=== PATIENT | female | born 1940 | race Caucasian/White ===

== ENCOUNTER 2021-08-30 14:44 | Emergency (ER) | payer OTHER, MEDICAID, SELFPAY ==
[2021-08-30] VITALS (16 sets, daily range): BP systolic 142–152; BP diastolic 78–100; PULSE 69–77; RESP 10–23; TEMP 36.1; O2SAT 97–99
--- NOTE | ~2021-08-30 | XR_ITS ---
EXAMINATION: XR hip BI 2V w AP pelvis EXAM DATE: 08/30/2021 15:57 INDICATION: Fall from w/c this P.M. . Head injury, hip pain. TECHNIQUE: Each hip imaged independently (separate right and also left hip) 'frog leg' and frontal p rojections for interpretation. Frontal projection pelvis. There is no prior study for comparison. FINDINGS: No radiographic evidence of hip avascular necrosis. There are no acute pelvic or hip fract ures or dislocations identified. There is no subcutaneous gas. There are arterial calcifications, a rteriosclerosis. There are no radiopaque foreign bodies. There is mild to moderate symmetric bilat eral hip primary osteoarthritis. IMPRESSION: 1. Hip, pelvic exam without acute osseous findings. Reviewed, dictated and finalized at location A. RUCTIONAL MANAGER
--- NOTE | ~2021-08-30 | XR_ITS ---
EXAMINATION: XR chest 2V DATE: 08/30/2021 15:57 INDICATION: Cough. COVID-19 pneumonia. TECHNIQUE: Frontal and lateral views of the chest were obtained. COMPARISON: None. FINDINGS: There is mild elevation of left hemidiaphragm. There are peripheral interstitial and airspa ce opacities in all lung zones bilaterally. No pleural effusion or pneumothorax. The heart size is no rmal. There is a large hiatal hernia. IMPRESSION: 1. Diffuse lung disease, consistent with COVID-19 pneumonia. 2. Large hiatal hernia. Reviewed, dictated and finalized at location B. DEVELOPMENT SPECIALIST
--- NOTE | ~2021-08-30 | CT_ITS ---
EXAMINATION: CT cervical spine wo con, CT brain wo con EXAM DATE: 08/30/2021 16:01 (accession [id number]), 08/30/2021 16:02 (accession [id number]) INDICATION: Fall, head injury. TECHNIQUE: Spiral CT of the head was performed without contrast. Axial, coronal and sagittal images were reviewed. Spiral CT of the cervical spine was performed without contrast. Axial images were rev iewed. Coronal and sagittal reformatted images were also reviewed. The dose-length product (DLP) fo r this examination was 392.76 (accession [id number]), 605.33 (accession [id number]) mGy-cm. The exposure was tailored according to patient size, and iterative reconstruction (ASIR) was used as additional dose reduction technique. There is no prior study for comparison. 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 Old punctate right thalamic lacunar infarc tion. There is no acute intraparenchymal hemorrhage. No evidence of intraparenchymal brain mass lesi on. No evidence of acute infarction. There is moderate periventricular and subcortical hypodensity, nonspecific but probably related to small vessel ischemic disease. There is moderate prominence of the sulci and ventricles related to cerebral atrophy. There is no mass effect or midline shift. Th ere is no obstructive hydrocephalus suspected. There are no extra-axial collections. There are no a cute calvarial fractures. Patient has had left-sided ocular lens surgery. Small left frontal scalp contusion/hematoma. The visualized sinuses and mastoid air cells are well aerated. CERVICAL CT: Moderate to severe cervical spondylosis. There is no evidence of acute cervical fracture . The odontoid process is intact. Pre-dens space is normal. Prevertebral soft tissue is normal. T here are no soft tissue abnormalities identified. There is no disc space widening or traumatic verte bral body subluxation suspected. A detailed level by level evaluation of spondylosis can be added as addendum if requested. IMPRESSION: 1. No acute intracranial findings or cervical fracture. 2. 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 3. 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 4. Age-related intracranial findings. 5. Cervical spondylosis. 6. Small left frontal scalp contusion/hematoma. Reviewed, dictated and finalized at location A. FARM ENGINEER IMPRESSION: 1. No acute intracranial findings or cervical fracture. 2. 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 3. 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 4. Age-related intracranial findings. 5. Cervical spondylosis. 6. Small left frontal scalp contusion/hematoma.
--- NOTE | 2021-08-30 14:49 | ECG_ITS ---
Measurements Intervals [place] Rate: 73 P: 55 AL: 204 QRS: -36 QRSD: 105 T: 21 QT: 417 QTc: 460 Interpretive Statements SINUS RHYTHM LEFT AXIS DEVIATION BORDERLINE AV CONDUCTION DELAY DELAYED PRECORDIAL R/S TRANSITION INFERIOR INFARCT, AGE INDETERMINATE BASELINE ARTIFACT- I, II, III, AVR, AVL, AVF, V1-V2 ABNORMAL ECG Electronically Signed On 09-04-2021 13:18:02 HONING MACHINE OPERATOR SEMIAUTOMATIC by Tree Kennedy D.O.
--- NOTE | 2021-08-30 15:49 | ED.FALL ---
HPI - Fall General Chief Complaint: Fall <VELIA Yeung Last Filed: 08/30/21 16:43> Stated Complaint: fall <VELIA Yeung Last Filed: 08/30/21 16:43> Time Seen by Provider: 08/30/21 15:16 <VELIA Yeung Last Filed: 08/30/21 16:43> Source: patient and EMS <VELIA Yeung Last Filed: 08/30/21 16:43> Mode of arrival: EMS <VELIA Yeung Last Filed: 08/30/21 16:43> Limitations: dementia <VELIA Yeung Last Filed: 08/30/21 16:43> History of Present Illness HPI Narrative: This is a 80 year old female that presents to the ER after a fall today with head injury. Reports she was bending forward in her wheelchair to pick something up and fell forward. Reports hitting her head. Denies loss of consciousness. Was recently diagnosed with COVID at her nursing facility. Otherwise has no complaints. Denies fever, vision changes, chest pain, shortness of breath, vomiting, numbness or focal weakness. <VELIA Yeung Last Filed: 08/30/21 16:43> Related Data Home Medications: Home Medications Medication Instructions Recorded Confirmed Symbicort 08/30/21 alprazolam 08/30/21 amiodarone 200 mg 08/30/21 carvedilol 08/30/21 digoxin 08/30/21 omeprazole 08/30/21 rosuvastatin 08/30/21 sertraline 08/30/21 <VELIA Yeung Last Filed: 08/30/21 16:43> Allergies/Adverse Reactions: Allergies Allergy/AdvReac Type Severity Reaction Status Date / Time Penicillins Allergy Unknown Verified 08/30/21 15:00 <VELIA Yeung Last Filed: 08/30/21 16:43> Review of Systems Review of Systems: CONSTITUTIONAL: Denies fever EYES: Denies visual changes CARDIOVASCULAR: Denies chest pain RESPIRATORY: Denies dyspnea. GASTROINTESTINAL: Denies vomiting MUSCULOSKELETAL: Denies back pain, joint pain, or myalgia. NEUROLOGIC: Denies headache, numbness, or weakness. <Deepika Ackerman PA-C - Last Filed: 08/30/21 16:43> All systems reviewed & are unremarkable except as noted in HPI and below <Deepika Ackerman PA-C - Last Filed: 08/30/21 16:43> PMFSH Past Medical History Medical History: Medical History (Updated 08/30/21 @ 16:41 by Deepika Ackerman PA-C) History of COPD History of gastroesophageal reflux (GERD) History of hyperlipidemia <Deepika Ackerman PA-C - Last Filed: 08/30/21 16:43> Social History Social History: Social History (Updated 08/30/21 @ 15:54 by Deepika Ackerman PA-C) Substance use: never <Deepika Ackerman PA-C - Last Filed: 08/30/21 16:43> Exam Narrative: GENERAL: Well-appearing, well-nourished, and in no acute distress. HEAD: Normocephalic. Contusion of the left forehead EYES: PERRLA and EOMI. ENT: Nares clear, no rhinorrhea or epistaxis. Mucous membranes moist. Oropharynx without tonsillar hypertrophy exudate or other lesions. Bilateral TMs pearly patel non-bulging NECK: Supple. No adenopathy or masses. No midline spinal tenderness CHEST: Clear to auscultation. No respiratory distress. No wheezes rales or rhonchi HEART: Regular rate and rhythm. No murmur heard. Normal peripheral pulses. BACK: No midline thoracic or lumbar spine tenderness EXTREMITIES: Normal range of motion. No edema or obvious deformity. SKIN: Warm, dry, no rash. NEURO: No focal deficits. Alert and oriented x2. CN II-XII grossly intact PSYCH: Normal mood and affect <Deepika Ackerman PA-C - Last Filed: 08/30/21 16:43> Course BENDER HELPER/PA Physician Supervision For this patient encounter, I reviewed the BENDER HELPER or PA documentation, treatment plan, and medical decision making. <Yonis Chun MD - Last Filed: 08/30/21 18:48> Vital Signs Vital signs: Vital Signs Temperature 97.0 F L 08/30/21 14:45 Pulse Rate 74 08/30/21 14:45 Respiratory Rate 18 08/30/21 14:45 Blood Pressure 152/89 H 08/30/21 14:45 Pulse Oximetry 99 08/30/21 14:45 Temperature 97.0 F L 08/30/21 14:45 Pulse
--- NOTE | 2021-08-30 18:16 | PC.NURSE ---
made contact with [facility] to transfer pt back to [facility]. richar pratt declined. made contact with [facility]. [facility] accepted with an eta of [id number]
--- NOTE | 2021-08-30 18:28 | PC.NURSE ---
cheyenne has arrived and is aware that pt is going back to [facility]
== END 2021-08-30 18:54 ==
PROVIDERS: Emergency Provider Emergency Medicine
DX: S00.83XA Contusion of other part of head, initial encounter (principal); U07.1 COVID-19; J12.82 Pneumonia due to coronavirus disease 2019; J44.9 Chronic obstructive pulmonary disease, unspecified; K21.9 Gastro-esophageal reflux disease without esophagitis; E78.5 Hyperlipidemia, unspecified; K44.9 Diaphragmatic hernia without obstruction or gangrene; M47.812 Spondylosis without myelopathy or radiculopathy, cervical region; W05.0XXA Fall from non-moving wheelchair, initial encounter
CPT/HCPCS: 70450; 71046; 72125; 73521; 93005; 99284

== ENCOUNTER 2023-01-24 18:59 | Emergency (ER) | payer OTHER, MEDICAID, SELFPAY ==
[2023-01-24] VITALS (26 sets, daily range): BP systolic 110–144; BP diastolic 61–89; PULSE 68–75; RESP 20–26; TEMP 36.6; O2SAT 97–100
--- NOTE | ~2023-01-24 | XR_ITS ---
EXAMINATION: XR chest 1V portable INDICATION: Shortness of breath TECHNIQUE: Portable AP chest at 1943 hours COMPARISON: 08/30/2021 FINDINGS: There are diffuse interstitial opacities throughout all lung zones. No pleural effusion or pneumothorax. Cardiomegaly is noted. There is a large hiatal hernia. IMPRESSION: 1. Diffuse lung disease which could reflect pulmonary edema, pneumonia, or chronic interstitial disea se. Reviewed, dictated and finalized at location F. IMPRESSION: 1. Diffuse lung disease which could reflect pulmonary edema, pneumonia, or child therapist deonte interstitial disease.
--- NOTE | 2023-01-24 19:37 | ECG_ITS ---
Measurements Intervals [place] Rate: 74 P: 44 AR: 186 QRS: -35 QRSD: 91 T: 20 QT: 289 QTc: 321 Interpretive Statements SINUS RHYTHM LEFT AXIS DEVIATION [QRS AXIS < -30] MINIMAL VOLTAGE CRITERIA FOR LVH, CONSIDER NORMAL VARIANT [MEETS CRITERIA IN ONE OF: R(aVL), S(V1), R(V5), R(V5/V6)+S(V1)] NONSPECIFIC ST & T-WAVE ABNORMALITY COMPARED TO ECG 08/30/2021 14:49:01 T-WAVE ABNORMALITY NOW PRESENT Electronically Signed On 01-25-2023 8:35:36 CDT by Emerita Jacobs M.D.
--- NOTE | 2023-01-24 19:39 | PC.NURSE ---
This RN assumed care of patient.
--- NOTE | 2023-01-24 20:02 | ED.GENADULT ---
HPI - General Adult General Chief complaint: Skin/Abscess/Foreign Body Stated complaint: painful rash/sob Time Seen by Provider: 01/24/23 19:28 History of Present Illness HPI narrative: Patient is a 82-year-old female who presents the emergency department with chief complaint of rash and shortness of breath. Patient has prior history of COPD and is a resident of a local nursing facility they noticed a rash develop underneath her right breast and from her sternum to her back. The staff at the facility reports that is a vesicular type rash concerning for shingles incidentally the patient also has had some increased shortness of breath and is normally on 4 L of oxygen at the facility. The patient currently has no complaint Related Data Home Medications Medication Instructions Recorded Confirmed Symbicort 08/30/21 alprazolam 0.25 mg tablet 08/30/21 amiodarone 200 mg 08/30/21 carvedilol 3.125 mg tablet 08/30/21 digoxin 08/30/21 omeprazole 08/30/21 rosuvastatin 08/30/21 sertraline 08/30/21 Allergies Allergy/AdvReac Type Severity Reaction Status Date / Time Penicillins Allergy Unknown Verified 05/28/22 08:56 Review of Systems Review of Systems: A 10 system review of systems was completed on the patient and is negative except for what is stated in the HPI. Nursing and ancillary documentation was reviewed. [facility] Past Medical History Medical History History of COPD History of gastroesophageal reflux (GERD) History of hyperlipidemia Social History Social History Substance use: never Exam Narrative: GENERAL: Well-appearing, well-nourished, and in no acute distress. HEAD: Normocephalic, atraumatic. EYES: PERRLA and EOMI. ENT: Nares clear, no rhinorrhea or epistaxis. Mucous membranes moist. NECK: Supple. CHEST: Clear to auscultation. No respiratory distress. There is a zoster form rash present underneath the right breast starting at the right sternal border HEART: Regular rate and rhythm. No murmur heard. Normal peripheral pulses. ABDOMEN: Soft, nontender, nondistended, normal active bowel sounds. EXTREMITIES: Normal range of motion. No edema. SKIN: Warm, dry, no rash. NEURO: No focal deficits. Alert and pleasantly confused at patient's reported baseline. PSYCH: Normal mood and affect. Course Vital Signs Vital signs: Vital Signs Temperature 36.6 C 01/24/23 19:00 Pulse Rate 75 01/24/23 19:00 Respiratory Rate 25 H 01/24/23 19:00 Blood Pressure 144/70 H 01/24/23 19:00 Pulse Oximetry 98 01/24/23 19:00 Oxygen Delivery Nasal Cannula 01/24/23 19:00 Oxygen Flow Rate 4 01/24/23 19:00 Temperature 36.6 C 01/24/23 19:00 Pulse Rate 72 01/24/23 20:18 Respiratory Rate 24 H 01/24/23 20:18 Blood Pressure 144/70 H 01/24/23 19:00 Pulse Oximetry 99 01/24/23 20:17 Oxygen Delivery Nasal Cannula 01/24/23 20:17 Oxygen Flow Rate 4 01/24/23 20:17 Fraction of Inspired Oxygen 36 01/24/23 20:17 Medical Decision Making [facility] Narrative Medical decision making narrative: Differential diagnosis includes COPD exacerbation, shingles, chest wall pain, pneumonia, ACS, sepsis Laboratory studies were obtained on the patient which showed a white count of 9.2 electrolytes showed slight liver transaminase elevation but normal bilirubin troponin was less than 0.012 BNP was 452 procalcitonin 0.3 chest x-ray showed possible pneumonia versus interstitial infiltrates versus CHF. The patient is currently hemodynamically stable patient be started on Valtrex for the zoster and will also be started on Levaquin for the possible pneumonia Vital Signs Vital Signs: Vital Signs Temperature 36.6 C 01/24/23 19:00 Pulse Rate 75 01/24/23 19:00 Respiratory Rate 25 H 01/24/23 19:00 Blood Pressure 144/70 H 01/24/23 19:00 Pulse Oximetry 98 06
[2023-01-24 20:03] LABS: Basophils Percent Auto 0.4 % (0.2-1.2); Eosinophils Absolute Auto 0.1 K/mm3 (0-0.3); Eosinophils Percent Auto 1.5 % (0-4.4); Hematocrit 42.2 % (37.0-47.0); Hemoglobin 13.6 g/dL (12.0-15.0); Immature Granulocyte Absolute 0.03 K/mm3 (0.00-0.031); Immature Granulocyte Percent A 0.3 % (0-0.5); Lymphocytes Absolute Auto 0.99 K/mm3 (0.9-3.2); Lymphocytes Percent Auto 10.8 % (18.3-44.2); Mean Corpuscular HGB Conc 32.2 g/dl (32-36); Mean Corpuscular Hemoglobin 30.7 pg (26-34); Mean Corpuscular Volume 95.3 fl (80-100); Mean Platelet Volume 12.5 fl (7.4-10.4); Monocytes Absolute Auto 0.7 K/mm3 (0.1-0.6); Monocytes Percent Auto 7.7 % (2.6-8.5); Neutrophils Absolute Auto 7.3 K/mm3 (1.3-6.7); Neutrophils Percent Auto 79.3 % (45.5-73.1); Platelet Count Result 147 k/mm3 (150-375); Red Blood Count 4.43 M/mm3 (4.2-5.4); Red Cell Distribution Width 14.6 % (11.5-14.5); White Blood Count 9.2 K/mm3 (4.5-10.0)
[2023-01-24] MEDS: IPRATROPIUM BR 0.02% INH SOLN 0.5 MG/2.5 ML VIAL INHALATION (20:11)
[2023-01-24] MEDS: ALBUTEROL SULFATE NEB 2.5 MG/3 ML INH INHALATION (20:11)
[2023-01-24 20:16] LABS: INR 1.1; Partial Thromboplastin Time 30.6 SECONDS (22.3-36.8); Prothrombin Time 14.6 Seconds (11.1-14.7)
[2023-01-24 20:17] LABS: Lactic Acid Reflex 0.8 mmol/L (0.7-2.0)
[2023-01-24 20:17] LABS: Alanine Aminotransferase 87 U/L (6-35); Albumin Level 3.7 g/dL (3.5-5.1); Alkaline Phosphatase 176 U/L (38-126); Anion Gap 4 mmol/L (8-16); Aspartate Amino Transferase 110 U/L (14-36); Bilirubin,Total 0.6 mg/dL (0.2-1.3); Blood Urea Nitrogen 18 mg/dL (7-17); Calcium 9.4 mg/dL (8.4-10.2); Carbon Dioxide 33 mmol/L (22-30); Chloride 103 mmol/L (98-107); Estimated CRCL calculation 46 ml/min; Estimated Glomerular Filt Rate > 60; Glucose 164 mg/dL (65-110); Magnesium 1.9 mg/dL (1.6-2.3); Potassium 3.4 mmol/L (3.4-5.0); Sodium 140 mmol/L (137-145)
[2023-01-24 20:26] LABS: NT Pro B Type Natriuretic Pept 452 pg/mL (19.9-100); Troponin I < 0.012 ng/mL (0.000-0.034)
[2023-01-24 20:47] LABS: Procalcitonin 0.3 ng/mL
[2023-01-24] MEDS: valACYclovir HCL 500 MG TABLET 1000 MG PO (22:47)
[2023-01-24] MEDS: levoFLOXacin 750 MG TABLET PO (22:47)
[2023-01-25 00:38] VITALS: PULSE 72; RESP 21
[2023-01-25 00:45] VITALS: PULSE 71; RESP 19
[2023-01-25 01:00] VITALS: BP 134/67; PULSE 71; RESP 19
[2023-01-25 01:01] VITALS: PULSE 70; RESP 18; O2SAT 97
--- NOTE | 2023-01-25 02:17 | PC.NURSE ---
0215 Report called to HESHAM Quinn at [facility]. Patient awaiting transport back to the [place] at this time.
[2023-01-25 02:19] VITALS: BP 136/75; PULSE 75; RESP 17; O2SAT 97
== END 2023-01-25 02:42 ==
PROVIDERS: Emergency Provider Emergency Medicine
DX: J44.0 Chronic obstructive pulmonary disease with (acute) lower respiratory infection (principal); J18.9 Pneumonia, unspecified organism; B02.9 Zoster without complications; R06.02 Shortness of breath; Z99.81 Dependence on supplemental oxygen; K21.9 Gastro-esophageal reflux disease without esophagitis; E78.5 Hyperlipidemia, unspecified; Z79.51 Long term (current) use of inhaled steroids
CPT/HCPCS: 36415; 71045; 80053; 83605; 83735; 83880; 84145; 84484; 85025; 85610; 85730; 93005; 94640; 99284; A9270

== ENCOUNTER 2023-03-15 08:32 | Inpatient (IN) | payer OTHER, MEDICAID, SELFPAY ==
[2023-03-15] VITALS (35 sets, daily range): BP systolic 100–129; BP diastolic 48–84; PULSE 77–110; RESP 19–34; TEMP 36.3–37.6; O2SAT 88–98
--- NOTE | ~2023-03-15 | XR_ITS ---
XR chest 1V portable DATE: 03/15/2023 09:43 INDICATION: Hypoxia TECHNIQUE: Portable upright AP chest on 03/15/2023 at 0936 hours COMPARISON: 01/24/2023 portable AP chest FINDINGS: Heart size is appears within normal range. There is extensive thoracic aortic and abdominal aortic calcification. No hilar or mediastinal enlargement. No pulmonary consolidation, pulmonary vascular congestion, pleural effusion or pneumothorax is eviden t. Diffuse osteopenia. IMPRESSION: No active cardiopulmonary disease Aortic atherosclerosis Osteopenia Reviewed, dictated and finalized at location A.
--- NOTE | ~2023-03-15 | US_ITS ---
EXAMINATION: US abdomen limited DATE: 03/16/2023 15:12 INDICATION: elevated LFTs TECHNIQUE: Multiple grayscale and Doppler ultrasound images of limited portions of the abdomen were o btained. COMPARISON: None available. FINDINGS: The visualized portions of the pancreas are normal. The liver is normal with normal echogen icity and echotexture. 1.5 cm simple liver cyst. No surface nodularity. Normal hepatopetal flow in th e main portal vein. The gallbladder is surgically absent. The common bile duct measures 5 mm. There w as no sonographic Meneses sign. IMPRESSION: Status post cholecystectomy, otherwise unremarkable limited abdominal ultrasound findings. Reviewed, dictated and finalized at location K. IMPRESSION: Status post cholecystectomy, otherwise unremarkable limited abdominal ultrasoun d findings.
--- NOTE | ~2023-03-15 | CT_ITS ---
EXAMINATION: CTA chest PE protocol DATE: 03/15/2023 13:24 INDICATION: Hypoxia TECHNIQUE: Computed tomography angiography (CTA) of the chest was performed with 100 mL Omnipaque-350 intravenous contrast timed to evaluate the pulmonary arteries. Coronal maximum intensity projection 3D-reconstructions were created by the technologist. Automated exposure control and iterative reconst ruction technique were employed. Exam dose: 436.45 mGy-cm total exam DLP. COMPARISON: 03/15/2023 portable AP chest FINDINGS: Examination is limited by motion. No apparent pulmonary embolus is noted. There is thoracic aortic calcification, ectasia but no thoracic aortic aneurysm or dissection is note d. Coronary artery calcifications. Heart size appears within normal limits. No hilar or mediastinal mass lesion or lymphadenopathy is detected. There is prominent emphysematous change of right lower lobe. There is patchy infiltrate and/or atelec tasis in the posterior base of the left lower lobe. Lungs. There is mild dependent atelectasis is Moderately large hiatal hernia. There are some circumferential soft tissue thickening of the distal e sophagus which may be due to esophagitis. Included right glenohumeral joint shows prominent osteoarthritis. Degenerative changes of the cervica l and thoracic spine. Osteopenia. IMPRESSION: No pulmonary embolism is identified Posterior basilar left lower lobe infiltrate and/or atelectasis Thoracic aortic atherosclerosis Prominent emphysema Moderately large hiatal hernia, probable esophagitis Reviewed, dictated and finalized at Location [facility]. Reviewed, dictated and finalized at location A.
--- NOTE | ~2023-03-15 | CT_ITS ---
EXAMINATION: CT brain wo con DATE: 03/15/2023 10:28 INDICATION: Altered mental state TECHNIQUE: Computed tomography (CT) of the head was performed without intravenous contrast. The mA wa s adjusted according to patient size. Iterative reconstruction technique was employed. Exam dose: 90 8.00 mGy-cm total exam DLP. COMPARISON: 08/30/2021 CT brain FINDINGS: Bilateral vertebral artery, basilar artery and bilateral carotid siphon and supraclinoid in ternal carotid artery calcifications. There is nonspecific diminished attenuation cerebral white matter, likely due to chronic small vessel ischemic changes. Again noted is right frontal cerebrovascular infarct. There are chronic lacunar infarcts of right the right thalamus and basal ganglia. There is nonspecific diminished attenuation of the cerebral white matter, likely due to chronic small vessel ischemic changes. No intracranial mass lesion or hemorrhage, midline shift or mass effect is detected. Moderate cerebral and cerebellar atrophy. No subdural or epidural hematoma is detected. Polyp or mucous retention cyst along the anterior roof of the right maxillary sinus and another small er mucous retention cyst or polyp along the anterior wall of the right sphenoid sinus. There are coup le of small areas of soft tissue thickening of the left ethmoid air cells. The paranasal sinuses and mastoid air cells are otherwise unremarkable. No fracture or bone destruction of the cranial vault. IMPRESSION: Cerebral atherosclerosis and chronic small vessel ischemic changes of the cerebral white matter Chronic right frontal lobe infarct and chronic lacunar infarcts of the right basal ganglia and right thalamus Moderate cerebral and cerebellar atrophy Reviewed, dictated and finalized at [facility]. Reviewed, dictated and finalized at location A. IMPRESSION: Cerebral atherosclerosis and chronic small vessel ischemic changes of the cerebral white matter Chronic right frontal lobe infarct and chronic lacunar infarcts of the right ba jareth ganglia and right thalamus Moderate cerebral and cerebellar atrophy
--- NOTE | 2023-03-15 08:38 | ECG_ITS ---
Measurements Intervals [place] Rate: 96 P: 24 [place]: 161 QRS: -40 QRSD: 79 T: 0 QT: 242 QTc: 306 Interpretive Statements SINUS RHYTHM LEFT AXIS DEVIATION PATTERN CONSISTENT WITH PULMONARY DISEASE LEFT VENTRICULAR HYPERTROPHY AND ST-T CHANGE INFERIOR INFARCT, AGE INDETERMINATE BORDERLINE ST-T WAVE ABNORMALITY- ANTEROLATERAL LEADS BASELINE ARTIFACT- I, III, AVR, AVL, V1 ABNORMAL ECG COMPARED TO ECG 01/24/2023 19:45:44 ST (T WAVE) DEVIATION NOW PRESENT Electronically Signed On 03-15-2023 8:55:53 CDT by Tree Kennedy D.O.
[2023-03-15] MEDS: IPRATROPIUM BR 0.02% INH SOLN 0.5 MG/2.5 ML VIAL 1 MG INHALATION (09:10)
[2023-03-15] MEDS: ALBUTEROL SULFATE NEB 2.5 MG/3 ML INH 15 MG INHALATION (09:10)
[2023-03-15 09:19] LABS: Alveolar/Arterial O2 Gradient 541.4 mmHg; Fractional Inspired Oxygen 100 %; Oxygen Content ABG 18.8 %vol (16.0-22.0); Oxygen Saturation ABG 99.1 % (95.0-100.0); Oxyhemoglobin 97.3 % THb (90.0-100.0); PCO2 ABG 32.8 mmHg (35.0-45.0); PO2 ABG 138.8 mmHg (80.0-100.0); PO2 FiO2 Ratio Arterial Blood 1.39 %; Total Hemoglobin 13.6 g/dL (12.0-18.0)
[2023-03-15 09:22] LABS: Device NON-REBREATHER MASK; Site Drawn RIGHT BRACHIAL; pH ABG 7.564 (7.350-7.450)
[2023-03-15 09:25] LABS: Appearance Urine Cloudy (Clear); Bacteria Urine 4+ /hpf; Bilirubin Urine 1+ (Negative); Blood Urine 3+ (Negative); Color Urine Dark Yellow (Yellow); Glucose Urine UA Negative (Negative); Ketones Urine Trace mg/dL (Negative); Leukocyte Esterase Ur Trace LEU/UL (Negative); Mucus Urine Present /lpf; Nitrate Urine Negative (Negative); Protein Urine 3+ mg/dL (Negative); RBC Urine 0-2 /hpf (0-2); Specific Grav Ur 1.026 (1.001-1.035); Squamous Epithelial Cell Urine Occasional /hpf (Few); WBC Urine 0-5 /hpf; pH Urine 5.5 (5.0-9.0)
[2023-03-15 09:31] LABS: Basophils Absolute Auto 0.1 K/mm3 (0.0-0.1); Basophils Percent Auto 0.4 % (0.2-1.2); Hematocrit 41.6 % (37.0-47.0); Hemoglobin 13.2 g/dL (12.0-15.0); Immature Granulocyte Absolute 0.12 K/mm3 (0.00-0.031); Immature Granulocyte Percent A 0.6 % (0-0.5); Immature Platelet Fraction Pct 11.8 % (0.9-11.2); Lymphocytes Absolute Auto 2.57 K/mm3 (0.9-3.2); Mean Corpuscular HGB Conc 31.7 g/dl (32-36); Mean Corpuscular Hemoglobin 31.1 pg (26-34); Mean Corpuscular Volume 97.9 fl (80-100); Monocytes Absolute Auto 1.1 K/mm3 (0.1-0.6); Neutrophils Absolute Auto 17.6 K/mm3 (1.3-6.7); Nucleated Red Blood Cells Perc 0.1 % (0.0-0.2); Platelet Count Result 220 k/mm3 (150-375); Red Blood Count 4.25 M/mm3 (4.2-5.4); Red Cell Distribution Width 17.7 % (11.5-14.5); White Blood Count 21.4 K/mm3 (4.5-10.0)
[2023-03-15 09:39] LABS: Lactic Acid Reflex 1.9 mmol/L (0.7-2.0)
[2023-03-15 09:43] LABS: Alanine Aminotransferase 121 U/L (6-35); Albumin Level 2.9 g/dL (3.5-5.1); Alkaline Phosphatase 327 U/L (38-126); Anion Gap 5 mmol/L (8-16); Aspartate Amino Transferase 140 U/L (14-36); Blood Urea Nitrogen 21 mg/dL (7-17); Calcium 8.6 mg/dL (8.4-10.2); Carbon Dioxide 31 mmol/L (22-30); Chloride 116 mmol/L (98-107); Estimated CRCL calculation 38 ml/min; Estimated Glomerular Filt Rate 60; Glucose 174 mg/dL (65-110); Potassium 2.6 mmol/L (3.4-5.0); Sodium 152 mmol/L (137-145)
[2023-03-15 09:44] LABS: Influenza A QL RT-PCR Negative (Negative); Influenza B QL RT-PCR Negative (Negative); RSV RNA, RT-PCR Negative (Negative); SARS-CoV-2 RNA PCR Negative (Negative)
[2023-03-15 10:00] LABS: Add Urine Microscopic? YES
[2023-03-15] MEDS: LACTATED RINGERS 1,000 ML 999 ML IV CONT ×2 (10:06→11:56)
[2023-03-15] MEDS: POTASSIUM CHLORIDE INJ 40 MEQ in SODIUM CHLORIDE 0.9% IV 500 ML 130 MEQ IVPB ×2 (10:07→18:00)
[2023-03-15 10:30] LABS: Glucose Point of Care 174 mg/dl (65-105)
--- NOTE | 2023-03-15 10:42 | ED.AMS ---
HPI - Altered Mental Status General Chief Complaint: Altered Mental Status Stated Complaint: increased altered mental status Time Seen by Provider: 03/15/23 08:34 History of Present Illness HPI narrative: Patient arrives from [place] with AMS since yesterday, normally she is alert and oriented x3. Also having difficulty breathing which improved after paramedics started breathing treatments. She is on home O2 but was saturating 76% on 2L when EMS arrived. DNR/DNI. Related Data Home Medications Medication Instructions Recorded Confirmed Symbicort 08/30/21 alprazolam 0.25 mg tablet 08/30/21 amiodarone 200 mg 08/30/21 carvedilol 3.125 mg tablet 08/30/21 digoxin 08/30/21 omeprazole 08/30/21 rosuvastatin 08/30/21 sertraline 08/30/21 Allergies Allergy/AdvReac Type Severity Reaction Status Date / Time Penicillins Allergy Unknown Verified 03/15/23 10:12 Review of Systems Review of Systems: ROS unobtainable: Yes unobtainable due to medical condition [facility] Past Medical History Medical History History of COPD History of gastroesophageal reflux (GERD) History of hyperlipidemia Social History Social History Substance use: never Exam Narrative: EXAMINATION OF ORGAN SYSTEMS/BODY AREAS: Constitutional: Vital signs per nursing GENERAL: Eyes closed, breathing rapidly HEAD: Normal with no signs of head trauma. EYES: PERRL ENT: Dry mucous membranes LUNGS: Hyperventilating, no obvious wheezing but rhonchi bilaterally HEART: [Regular rate and rhythm] ABD: [Soft], [nontender to palpation] EXT: No obvious deformity SKIN: [No rashes or lesions.] NEURO: [Eyes closed and lethargic. No gross focal sensory or strength deficits.] Course Vital Signs Vital signs: Vital Signs Temperature 98.8 F 03/15/23 08:38 Pulse Rate 97 03/15/23 08:38 Respiratory Rate 28 H 03/15/23 08:38 Blood Pressure 119/75 03/15/23 08:38 Pulse Oximetry 88 L 03/15/23 08:38 Oxygen Delivery Nasal Cannula 03/15/23 08:38 Oxygen Flow Rate 5 03/15/23 08:38 Temperature 98.8 F 03/15/23 08:38 Pulse Rate 89 03/15/23 12:45 Respiratory Rate 26 H 03/15/23 12:45 Blood Pressure 114/56 L 03/15/23 12:45 Pulse Oximetry 98 03/15/23 12:45 Oxygen Delivery Nasal Cannula 03/15/23 12:45 Oxygen Flow Rate 2 03/15/23 12:45 MDM - Altered Mental Status MDM Narrative Medical decision making narrative: 82-year-old female presenting with altered mental status, lethargy, difficulty breathing, hypoxia, upon arrival she is immediately placed on monitors, nonrebreather to increase her saturation while pending breathing treatments from RT, EKG obtained and labs drawn. She is protecting her airway and there are bilateral breath sounds and normal pulses, full work-up for neurologic, cardiac and infectious etiology started and blood cultures drawn, antibiotics started. Differential diagnosis including pneumonia, COPD exacerbation with CO2 narcosis, sepsis, ACS, CVA considered; Lower concern for ACS without overt complaints of chest pain, or PE without DVT symptoms. Chest x-ray my own independent interpretation does not show any obvious consolidations or other acute abnormality or enlarged heart, I did therefore start IV fluids, and after reevaluation after DuoNeb's and fluids, she is now saturating 94 to 95% on her baseline of 2 L oxygen, she is now more alert with her eyes open and able to mumble, CT head on my own independent interpretation does not show any obvious acute bleed, EKG - 12-Lead: Performed at 0839. Interpreted by me. [Sinus rhythm]. Rate 96. Left axis. DC-interval 161. QRS duration 79. QTc 306. [No ST segment elevation]. Impression: No EKG evidence of acute ischemia or dysrhythmia. Potassium did return at 2.6, repletion is started with IV fluids, WBC quite elevated at 21 however no obvious source, UA with some ba
[2023-03-15 12:48] LABS: Troponin I 0.257 ng/mL (0.000-0.034)
[2023-03-15 13:40] LABS: Troponin I 0.237 ng/mL (0.000-0.034)
[2023-03-15] MEDS: ASPIRIN 300 MG SUPPOSITORY RECTAL (13:42)
[2023-03-15] MEDS: AZITHROMYCIN 500 MG/NS 250 ML 500 MG/250 ML BAG 250 MG IVPB (14:27)
--- NOTE | 2023-03-15 14:40 | ADMGEN ---
This patient, Alicia Burgos, was admitted to IMU Room 202-01. Patient/family oriented to hospital policies and general routines including ID bracelet, bed and alarms, visiting hours, pain management, procedures, bathroom and other care routines, personal items, smoking policy, room service/diet, and visiting hours. Information on how to activate the Rapid Response Team has been discussed. Patient/Family are encouraged to report perceived risks to care and to ask questions if they do not understand what they are told or what they should do.
--- NOTE | 2023-03-15 14:57 | PM.IMHP ---
H&P: HPI History of Present Illness Date/Time: 03/15/23 15:15 Chief Complaint: Confusion. Narrative: This is an 82-year-old female with COPD on oxygen, paroxysmal atrial fibrillation, hypertension, hyperlipidemia, type 2 diabetes mellitus, and gastroesophageal reflux disease who presented to the emergency department via EMS from a local assisted for evaluation of confusion. At baseline she is alert and oriented x3 however today is only oriented x1. She is not able to provide any meaningful history and thus a majority the following is obtained via a review of her EMR as well as information obtained from her sister. Over last 24 hours or so she has become increasingly confused and this morning she was lethargic with an SpO2 of 88% on 5 L nasal cannula and she was sent in for evaluation. She was afebrile on arrival to the ED with stable blood pressures. Labs were significant for WBC count of 21.4, sodium 152, potassium 2.6, chloride 116, BUN 21, creatinine 0.90, AST 140, ALT 121, alkaline phosphatase 327, troponin 0.257. ABG showed a pH of 7.564, pCO2 32.8, bicarb 29.0. Brain CT did not show any acute findings. Chest CTA was negative for PE but showed prominent emphysema, moderately large hiatal hernia with probable esophagitis, and posterior basilar left lower lobe infiltrate and/or atelectasis. Urine was nitrate negative, trace leukocyte esterase positive, and showed 4+ bacteria was 0 to 5 WBC. She was given a dose of azithromycin and ceftriaxone in the ED as well as an IV fluid bolus and she is being admitted in this setting for further treatment and evaluation. At the time my evaluation she will awake to name. She answers only a few questions, more specifically she was able to tell me her name and she was able to tell me that she did not have any pain in her chest or abdomen. She did not answer any other questions nor did she really follow commands aside from squeezing my fingers. Review of Systems Review of Systems: Unable to obtain given current clinical condition as above. [facility] Past Medical History Medical History (Updated 03/15/23 @ 23:22 by Jeannie Shelton PA-C) Arthritis Cerebrovascular accident Chronic obstructive pulmonary disease Depression with anxiety Gastroesophageal reflux disease Herpes zoster (01/2023) Hyperlipidemia Hypertension Paroxysmal atrial fibrillation Type 2 diabetes mellitus Surgical History Surgical History (Updated 03/15/23 @ 15:00 by Jeannie Shelton PA-C) History of hysterectomy Family History Family History (Updated 03/15/23 @ 15:01 by Jeannie Shelton PA-C) Other Family history unknown Social History Social History (Updated 03/15/23 @ 23:21 by Jeannie Shelton PA-C) Social History: Surrogate medical decision maker: Yanique Carson, daughter. Code status: Do not resuscitate. Smoking status: Former smoker Substance use: never Spiritual care concerns: No Meds Home Medications and Allergies Home Medications Medication Instructions Recorded Confirmed Type carvedilol 3.125 mg tablet 3.125 mg PO DAILY 08/30/21 03/15/23 History acetaminophen 500 mg tablet 500 mg PO Q8H PRN Pain 03/15/23 03/15/23 History albuterol sulfate 90 mcg/actuation 2 inh inhalation Q4-6H PRN 03/15/23 03/15/23 History breath activated powder inhaler shortness of breath or wheezing amiodarone 200 mg tablet 200 mg PO DAILY 03/15/23 03/15/23 History buspirone 7.5 mg tablet 7.5 mg PO Q12H 03/15/23 03/15/23 History digoxin 125 mcg (0.125 mg) tablet 125 mcg PO QMWF 03/15/23 03/15/23 History guaifenesin 600 mg tablet, 600 mg PO Q12H 03/15/23 03/15/23 History extended release 12 hr (Mucinex) loperamide 2 mg capsule 2 mg PO TID PRN Diarrhea 03/15/23 03/15/23 History megestrol 400 mg/10 mL (40 mg/mL) 400 mg PO BID 03/15/23 03/15/23 History oral suspension lzjxfqpu-[id number]-[id number] ac 400 1 tablet PO DAILY 03/15/23 03/15/23 History mcg-calcium carb 500 mg-vit K1 20 mcg tablet omeprazole
[2023-03-15 16:25] LABS: Anion Gap 6 mmol/L (8-16); Blood Urea Nitrogen 17 mg/dL (7-17); Calcium 7.8 mg/dL (8.4-10.2); Carbon Dioxide 30 mmol/L (22-30); Chloride 116 mmol/L (98-107); Estimated CRCL calculation 42 ml/min; Estimated Glomerular Filt Rate > 60; Glucose 169 mg/dL (65-110); Magnesium 2.3 mg/dL (1.6-2.3); Sodium 152 mmol/L (137-145)
[2023-03-15 16:42] LABS: Free T4 Free Thyroxine 1.55 ng/mL (0.78-2.19); Troponin I 0.222 ng/mL (0.000-0.034)
[2023-03-15] MEDS: SODIUM CHLORIDE 0.45% 1,000 ML 100 ML IV CONT (18:00)
[2023-03-15 23:38] LABS: Anion Gap 3 mmol/L (8-16); Blood Urea Nitrogen 15 mg/dL (7-17); Calcium 7.8 mg/dL (8.4-10.2); Carbon Dioxide 25 mmol/L (22-30); Chloride 123 mmol/L (98-107); Estimated CRCL calculation 55 ml/min; Estimated Glomerular Filt Rate > 60; Glucose 135 mg/dL (65-110); Potassium 3.8 mmol/L (3.4-5.0); Sodium 151 mmol/L (137-145)
[2023-03-15 23:54] LABS: Digoxin < 0.5 ng/mL (0.8-2.0)
[2023-03-16] VITALS (15 sets, daily range): BP systolic 124–162; BP diastolic 55–68; PULSE 63–81; RESP 18–22; TEMP 36.4–37.6; O2SAT 93–99
[2023-03-16 00:34] LABS: Glucose Point of Care 154 mg/dl (65-105)
[2023-03-16] MEDS: SODIUM CHLORIDE 0.45% 1,000 ML 100 ML IV CONT (06:57)
[2023-03-16 07:08] LABS: Glucose Point of Care 136 mg/dl (65-105)
[2023-03-16 07:24] LABS: Ammonia < 9 umol/L (9-30)
[2023-03-16 07:24] LABS: Hemoglobin 11.7 g/dL (12.0-15.0); Immature Platelet Fraction Pct 12.1 % (0.9-11.2); Mean Corpuscular HGB Conc 30.8 g/dl (32-36); Mean Corpuscular Volume 100.8 fl (80-100); Platelet Count Result 125 k/mm3 (150-375); Red Blood Count 3.77 M/mm3 (4.2-5.4); Red Cell Distribution Width 18.4 % (11.5-14.5); White Blood Count 12.3 K/mm3 (4.5-10.0)
[2023-03-16 08:24] LABS: Hemoglobin A1C 6.9 % (<5.7)
[2023-03-16 09:01] LABS: Hepatitis B Surface Antigen Negative (Negative)
[2023-03-16 09:07] LABS: HAV RESULT Negative (Negative); Hepatitis B Core IgM Result Negative (Negative)
[2023-03-16 09:18] LABS: Hepatitis C Virus Antibody Negative (Negative)
[2023-03-16 09:31] LABS: Free T4 Free Thyroxine Reflex 1.58 ng/dL (0.78-2.19)
[2023-03-16 10:29] LABS: Total Triiodothyronine (T3) 0.82 NG/ML (0.97-1.69)
[2023-03-16] MEDS: ENOXAPARIN 40 MG/0.4 ML SYRINGE SUB-Q (11:10)
[2023-03-16 11:43] LABS: Alanine Aminotransferase 97 U/L (6-35); Albumin Level 2.6 g/dL (3.5-5.1); Alkaline Phosphatase 250 U/L (38-126); Anion Gap 3 mmol/L (8-16); Aspartate Amino Transferase 112 U/L (14-36); Bilirubin,Total 0.7 mg/dL (0.2-1.3); Blood Urea Nitrogen 14 mg/dL (7-17); Carbon Dioxide 28 mmol/L (22-30); Chloride 119 mmol/L (98-107); Creatine Kinase 240 U/L (30-135); Estimated CRCL calculation 55 ml/min; Estimated Glomerular Filt Rate > 60; Glucose 135 mg/dL (65-110); Magnesium 2.4 mg/dL (1.6-2.3); Potassium 3.1 mmol/L (3.4-5.0); Sodium 150 mmol/L (137-145)
[2023-03-16 12:02] LABS: Glucose Point of Care 98 mg/dl (65-105)
[2023-03-16 12:52] LABS: Folic Acid 13.7 ng/mL (2.76->20)
[2023-03-16] MEDS: AZITHROMYCIN 500 MG/NS 250 ML 500 MG/250 ML BAG 250 MG IVPB (15:37)
--- NOTE | 2023-03-16 16:41 | PM.IMPN ---
Progress Note: A&P Assessment and Plan (1) Sepsis: Code(s): A41.9 - Sepsis, unspecified organism Status: Acute (2) Acute respiratory failure with hypoxia: Code(s): J96.01 - Acute respiratory failure with hypoxia Status: Acute (3) Metabolic encephalopathy: Code(s): G93.41 - Metabolic encephalopathy Status: Acute (4) Abnormal urinalysis: Code(s): R82.90 - Unspecified abnormal findings in urine Status: Acute (5) Pneumonia: Code(s): J18.9 - Pneumonia, unspecified organism Status: Acute (6) Hypernatremia: Code(s): E87.0 - Hyperosmolality and hypernatremia Status: Acute (7) Hypokalemia: Code(s): E87.6 - Hypokalemia Status: Acute (8) Transaminitis: Code(s): R74.01 - Elevation of levels of liver transaminase levels Status: Acute (9) Elevated troponin: Code(s): R77.8 - Other specified abnormalities of plasma proteins Status: Acute (10) Type 2 diabetes mellitus: Code(s): E11.9 - Type 2 diabetes mellitus without complications Status: Acute (11) Hypertension: Code(s): I10 - Essential (primary) hypertension Status: Acute (12) Paroxysmal atrial fibrillation: Code(s): I48.0 - Paroxysmal atrial fibrillation Status: Acute (13) Chronic obstructive pulmonary disease: Code(s): J44.9 - Chronic obstructive pulmonary disease, unspecified Status: Acute Plan The patient was brought to the emergency department today for evaluation of confusion. Patient afebrile and vitals stable hypoxic on presentation improved with oxygen supplementation. At baseline alert and oriented x3. Meets criteria for sepsis with leukocytosis tachycardia and altered mental status. CT head was negative for any acute intracranial abnormality. WBC count of 21 K on admission. Pancultured on admission. WBC count improved down to 12,000 today. ABG with respiratory alkalosis. Also has hypernatremia with sodium level of 151 and severely hypokalemic. Replace and monitor. Renal function stable. A1c at 6.9 blood sugar acceptable lactic acid is normal. LFTs are elevated with AST 140/ALT 121 and ALP 327. Mild troponin elevation at 0.257 with flat trajectory. TSH elevated at 7.7. On half-normal saline. Will change to D5 half-normal saline. CT scan with left lower lobe pneumonia on ceftriaxone and azithromycin. No evidence of UTI. Right upper quadrant ultrasound for elevated liver enzymes were done which was unremarkable. DVT prophylaxis with Lovenox. Echocardiogram pending. Continue amiodarone and carvedilol. Currently in normal sinus rhythm. History of proximal atrial fibrillation. Digoxin level less than 0.5 hepatitis panel was negative influenza negative RSV and COVID negative urine antigens are sent and pending. DNR DNI discussed with the family Subjective Date/time seen: 03/16/23 16:41 Interval history: Patient is more alert and oriented. Family at bedside discussed with her. [facility] resident. Review of Systems Review of Systems: All systems reviewed & are unremarkable except as noted in HPI and below Exam Narrative: General: Moderately ill-appearing elderly female in the semi-Gibson position in bed. Awake and alert and conversant HEENT: Normocephalic, atraumatic. PERRL, EOMI.? Sclerae anicteric. Dry mucous membranes.? Oropharynx poorly visualized. Neck:? Supple. No lymphadenopathy or JVD. Respiratory:? Respirations are even and nonlabored. Lung sounds are diminished due to poor effort. Cardiovascular:? Regular rate and rhythm with S1-S2.? Gastrointestinal:? Abdomen is soft, obese, nontender, and nondistended with positive bowel sounds. Skin:? Warm and dry. Extremities:? No cyanosis, clubbing, or edema. Radial and pedal pulses intact. Neurologic:? Alert and awake conversant oriented to self and place moving all extremities Psychiatric: More awake cooperative Objective Data Vit
[2023-03-16 18:19] LABS: Glucose Point of Care 93 mg/dl (65-105)
[2023-03-16] MEDS: DEXTROSE 5%/0.45% SOD CHL 1,000 ML 100 ML IV CONT (18:25)
[2023-03-16] MEDS: carvediloL 3.125 MG TABLET PO (20:37)
[2023-03-16] MEDS: guaiFENesin 12 HR 600 MG TABCR PO (20:38)
[2023-03-16] MEDS: busPIRone HCL 5 MG TABLET PO (20:38)
[2023-03-16] MEDS: busPIRone HCL 2.5 MG TABLET PO (20:38)
[2023-03-16 23:11] LABS: Glucose Point of Care 146 mg/dl (65-105)
--- NOTE | 2023-03-16 23:27 | ECHO_ITS ---
Patient Info Name: Alicia Burgos Age: 82 years : 1940 Gender: Female Ht: 65 in Wt: 132 lbs BSA: 1.66 m2 HR: 75 bpm BP: 151 / 67 mmHg Heart Rhythm: Sinus Rhythm Technical Quality: Good Exam Date: 03/16/2023 8:34 AM Exam Location: [facility] Patient Status: Outpatient Admit Date: 03/15/2023 Staff Ordering Physician: Jeannie Shelton PA-C Servicing Rep: Sydnie Ambrocio RDCS Attending Provider: Megan Hauser DO Referring Physician: Nikita TRAVIS; Exam Type: CA echo doppler color flow Study Info Indications - EKG changes, elevated troponin Complete two-dimensional, color flow and Doppler transthoracic echocardiogram is performed. Summary 1. Complete two-dimensional, color flow and Doppler transthoracic echocardiogram is performed. 2. Normal left ventricular size and systolic contractility without ischemic wall motion abnormality. 3. Grade 1 diastolic noncompliance. 4. Aortic valve which is sclerotic but not stenotic. Left Ventricle Left ventricular chamber dimension is normal. Left ventricular systolic function is normal, estimated at 65-70%. The left ventricular diastolic function is grade I diastolic dysfunction. Right Ventricle Right ventricular chamber dimension is normal. Left Atria Left atrial chamber dimension is normal. Right Atria Right atrial chamber dimension is normal. Aortic Valve The aortic valve is trileaflet. There is moderate aortic valve sclerosis. There is no aortic valve stenosis. There is trace aortic valve regurgitation. Pulmonic Valve The pulmonic valve is not well visualized. Mitral Valve The mitral valve has normal leaflets. The mitral valve annulus is mildly calcified. Tricuspid Valve The tricuspid valve leaflets are normal. Pericardium/Pleural The pericardium appears normal. Aorta The aortic root size at the sinus of Valsalva is normal. Left Ventricular Outflow Tract Name Value Normal LVOT 2D LVOT Diameter 2.0 cm LVOT Doppler LVOT Peak Gradient 7 mmHg LVOT Mean Gradient 2 mmHg LVOT VTI 20 cm LVOT VTI/AV VTI Ratio 0.6 LVOT Stroke Volume 67 ml LVOT CO 5.0 l/min LVOT CI 3.0 l/min/m2 Pulmonic Valve Name Value Normal RVOT Doppler RVOT Peak Gradient 2 mmHg PV Doppler PV Peak Gradient 4 mmHg Mitral Valve Name Value Normal MV Doppler MV Decel [place] 496 cm/s2 MV PHT
[2023-03-17] VITALS (17 sets, daily range): BP systolic 108–165; BP diastolic 45–72; PULSE 58–73; RESP 16–22; TEMP 36.2–37.2; O2SAT 95–100; BMI 22.6
[2023-03-17] MEDS: POTASSIUM CHLORIDE INJ 40 MEQ in SODIUM CHLORIDE 0.9% IV 500 ML 130 MEQ IVPB ×2 (00:21→17:19)
[2023-03-17 05:05] LABS: Basophils Percent Auto 0.4 % (0.2-1.2); Eosinophils Absolute Auto 0.2 K/mm3 (0-0.3); Eosinophils Percent Auto 2.3 % (0-4.4); Hematocrit 34.7 % (37.0-47.0); Hemoglobin 10.7 g/dL (12.0-15.0); Immature Granulocyte Absolute 0.03 K/mm3 (0.00-0.031); Immature Granulocyte Percent A 0.4 % (0-0.5); Lymphocytes Absolute Auto 1.41 K/mm3 (0.9-3.2); Lymphocytes Percent Auto 17.8 % (18.3-44.2); Mean Corpuscular HGB Conc 30.8 g/dl (32-36); Mean Corpuscular Hemoglobin 30.8 pg (26-34); Mean Platelet Volume 14.6 fl (7.4-10.4); Monocytes Absolute Auto 0.4 K/mm3 (0.1-0.6); Monocytes Percent Auto 5.4 % (2.6-8.5); Neutrophils Absolute Auto 5.8 K/mm3 (1.3-6.7); Neutrophils Percent Auto 73.7 % (45.5-73.1); Platelet Count Result 108 k/mm3 (150-375); Red Blood Count 3.47 M/mm3 (4.2-5.4); Red Cell Distribution Width 18.3 % (11.5-14.5); White Blood Count 7.9 K/mm3 (4.5-10.0)
[2023-03-17 05:16] LABS: Alanine Aminotransferase 78 U/L (6-35); Albumin Level 2.3 g/dL (3.5-5.1); Alkaline Phosphatase 220 U/L (38-126); Anion Gap -1 mmol/L (8-16); Aspartate Amino Transferase 111 U/L (14-36); Bilirubin,Total 0.5 mg/dL (0.2-1.3); Blood Urea Nitrogen 9 mg/dL (7-17); Calcium 7.4 mg/dL (8.4-10.2); Carbon Dioxide 28 mmol/L (22-30); Chloride 118 mmol/L (98-107); Estimated CRCL calculation 65 ml/min; Estimated Glomerular Filt Rate > 60; Glucose 104 mg/dL (65-110); Magnesium 2.2 mg/dL (1.6-2.3); Potassium 3.1 mmol/L (3.4-5.0); Sodium 145 mmol/L (137-145)
[2023-03-17] MEDS: AMIODARONE HCL 200 MG TABLET PO (09:44)
[2023-03-17] MEDS: busPIRone HCL 5 MG TABLET PO ×2 (09:45→21:19)
[2023-03-17] MEDS: busPIRone HCL 2.5 MG TABLET PO ×2 (09:45→21:19)
[2023-03-17] MEDS: carvediloL 3.125 MG TABLET PO ×2 (09:45→21:20)
[2023-03-17] MEDS: SERTRALINE HCL 50 MG TABLET 100 MG PO (09:46)
[2023-03-17] MEDS: guaiFENesin 12 HR 600 MG TABCR PO ×2 (09:46→21:14)
[2023-03-17] MEDS: ENOXAPARIN 40 MG/0.4 ML SYRINGE SUB-Q (09:46)
--- NOTE | 2023-03-17 10:20 | PCSTNOTE ---
Please refer to the Bedside Swallow Evaluation in the EMR. Please note, silent aspiration cannot be ruled out at bedside.
[2023-03-17] MEDS: DEXTROSE 5%/0.45% SOD CHL 1,000 ML 100 ML IV CONT (13:56)
[2023-03-17 14:54] LABS: Glucose Point of Care 142 mg/dl (65-105)
[2023-03-17] MEDS: AZITHROMYCIN 500 MG/NS 250 ML 500 MG/250 ML BAG 250 MG IVPB (14:56)
[2023-03-17 17:24] LABS: Glucose Point of Care 105 mg/dl (65-105)
--- NOTE | 2023-03-17 17:29 | WPDPN ---
Progress Note: A&P Assessment and Plan (1) Sepsis: Code(s): A41.9 - Sepsis, unspecified organism Status: Acute (2) Acute respiratory failure with hypoxia: Code(s): J96.01 - Acute respiratory failure with hypoxia Status: Acute (3) Metabolic encephalopathy: Code(s): G93.41 - Metabolic encephalopathy Status: Acute (4) Abnormal urinalysis: Code(s): R82.90 - Unspecified abnormal findings in urine Status: Acute (5) Pneumonia: Code(s): J18.9 - Pneumonia, unspecified organism Status: Acute (6) Hypernatremia: Code(s): E87.0 - Hyperosmolality and hypernatremia Status: Acute (7) Hypokalemia: Code(s): E87.6 - Hypokalemia Status: Acute (8) Transaminitis: Code(s): R74.01 - Elevation of levels of liver transaminase levels Status: Acute (9) Elevated troponin: Code(s): R77.8 - Other specified abnormalities of plasma proteins Status: Acute (10) Type 2 diabetes mellitus: Code(s): E11.9 - Type 2 diabetes mellitus without complications Status: Acute (11) Hypertension: Code(s): I10 - Essential (primary) hypertension Status: Acute (12) Paroxysmal atrial fibrillation: Code(s): I48.0 - Paroxysmal atrial fibrillation Status: Acute (13) Chronic obstructive pulmonary disease: Code(s): J44.9 - Chronic obstructive pulmonary disease, unspecified Status: Acute Plan The patient was brought to the emergency department today for evaluation of confusion. Patient afebrile and vitals stable hypoxic on presentation improved with oxygen supplementation. At baseline alert and oriented x3. Meets criteria for sepsis with leukocytosis tachycardia and altered mental status. CT head was negative for any acute intracranial abnormality. WBC count of 21 K on admission. Pancultured on admission. WBC count improved down to 12,000 today. ABG with respiratory alkalosis. Also has hypernatremia with sodium level of 151 and severely hypokalemic. Replace and monitor. Renal function stable. A1c at 6.9 blood sugar acceptable lactic acid is normal. LFTs are elevated with AST 140/ALT 121 and ALP 327. Mild troponin elevation at 0.257 with flat trajectory. TSH elevated at 7.7. On half-normal saline. Will change to D5 half-normal saline. CT scan with left lower lobe pneumonia on ceftriaxone and azithromycin. No evidence of UTI. Right upper quadrant ultrasound for elevated liver enzymes were done which was unremarkable. DVT prophylaxis with Lovenox. Echocardiogram pending. Continue amiodarone and carvedilol. Currently in normal sinus rhythm. History of proximal atrial fibrillation. Digoxin level less than 0.5 hepatitis panel was negative influenza negative RSV and COVID negative urine antigens are sent and pending. DNR DNI discussed with the family 03/17/2023 interval history: Today patient still remains somnolent unable to provide detailed review of symptom concerning for sepsis etiology uncertain patient is pancultured, will follow-up on urine and blood culture, will continue to monitor, once more alert will have a PT OT evaluate the patient. Subjective Date/time seen: 03/17/23 17:29 Interval history: The patient was brought to the emergency department today for evaluation of confusion. Patient afebrile and vitals stable hypoxic on presentation improved with oxygen supplementation. At baseline alert and oriented x3. Meets criteria for sepsis with leukocytosis tachycardia and altered mental status. CT head was negative for any acute intracranial abnormality. WBC count of 21 K on admission. Pancultured on admission. WBC count improved down to 12,000 today. ABG with respiratory alkalosis. Also has hypernatremia with sodium level of 151 and severely hypokalemic. Replace and monitor. Renal function stable. A1c at 6.9 blood sugar acceptable lactic acid is normal. LFTs are elevated with AST 140/ALT
[2023-03-17 23:24] LABS: Glucose Point of Care 103 mg/dl (65-105)
[2023-03-18] VITALS (16 sets, daily range): BP systolic 96–145; BP diastolic 52–95; PULSE 64–87; RESP 18–20; TEMP 36.4–36.8; O2SAT 96–100
[2023-03-18] MEDS: DEXTROSE 5%/0.45% SOD CHL 1,000 ML 100 ML IV CONT ×3 (03:48→22:17)
[2023-03-18 05:07] LABS: Hematocrit 36.8 % (37.0-47.0); Hemoglobin 11.4 g/dL (12.0-15.0); Mean Corpuscular Hemoglobin 31.2 pg (26-34); Mean Corpuscular Volume 100.8 fl (80-100); Mean Platelet Volume 14.6 fl (7.4-10.4); Platelet Count Result 126 k/mm3 (150-375); Red Blood Count 3.65 M/mm3 (4.2-5.4); Red Cell Distribution Width 18.3 % (11.5-14.5); White Blood Count 8.7 K/mm3 (4.5-10.0)
[2023-03-18 05:39] LABS: Anion Gap 0 mmol/L (8-16); Blood Urea Nitrogen 7 mg/dL (7-17); Calcium 7.6 mg/dL (8.4-10.2); Carbon Dioxide 30 mmol/L (22-30); Chloride 117 mmol/L (98-107); Estimated CRCL calculation 55 ml/min; Estimated Glomerular Filt Rate > 60; Glucose 110 mg/dL (65-110); Magnesium 1.9 mg/dL (1.6-2.3); Potassium 3.6 mmol/L (3.4-5.0); Sodium 147 mmol/L (137-145)
[2023-03-18] MEDS: guaiFENesin 12 HR 600 MG TABCR PO ×2 (09:40→21:24)
[2023-03-18] MEDS: AMIODARONE HCL 200 MG TABLET PO (09:40)
[2023-03-18] MEDS: ENOXAPARIN 40 MG/0.4 ML SYRINGE SUB-Q (09:43)
[2023-03-18] MEDS: SERTRALINE HCL 50 MG TABLET 100 MG PO (09:43)
[2023-03-18] MEDS: busPIRone HCL 2.5 MG TABLET PO ×2 (11:08→21:24)
[2023-03-18] MEDS: carvediloL 3.125 MG TABLET PO ×2 (11:08→21:23)
[2023-03-18] MEDS: busPIRone HCL 5 MG TABLET PO ×2 (11:28→21:23)
[2023-03-18] MEDS: AZITHROMYCIN 500 MG/NS 250 ML 500 MG/250 ML BAG 250 MG IVPB (15:55)
--- NOTE | 2023-03-18 18:10 | WPDPN ---
Progress Note: A&P Assessment and Plan (1) Sepsis: Code(s): A41.9 - Sepsis, unspecified organism Status: Acute (2) Acute respiratory failure with hypoxia: Code(s): J96.01 - Acute respiratory failure with hypoxia Status: Acute (3) Metabolic encephalopathy: Code(s): G93.41 - Metabolic encephalopathy Status: Acute (4) Abnormal urinalysis: Code(s): R82.90 - Unspecified abnormal findings in urine Status: Acute (5) Pneumonia: Code(s): J18.9 - Pneumonia, unspecified organism Status: Acute (6) Hypernatremia: Code(s): E87.0 - Hyperosmolality and hypernatremia Status: Acute (7) Hypokalemia: Code(s): E87.6 - Hypokalemia Status: Acute (8) Transaminitis: Code(s): R74.01 - Elevation of levels of liver transaminase levels Status: Acute (9) Elevated troponin: Code(s): R77.8 - Other specified abnormalities of plasma proteins Status: Acute (10) Type 2 diabetes mellitus: Code(s): E11.9 - Type 2 diabetes mellitus without complications Status: Acute (11) Hypertension: Code(s): I10 - Essential (primary) hypertension Status: Acute (12) Paroxysmal atrial fibrillation: Code(s): I48.0 - Paroxysmal atrial fibrillation Status: Acute (13) Chronic obstructive pulmonary disease: Code(s): J44.9 - Chronic obstructive pulmonary disease, unspecified Status: Acute Plan The patient was brought to the emergency department today for evaluation of confusion. Patient afebrile and vitals stable hypoxic on presentation improved with oxygen supplementation. At baseline alert and oriented x3. Meets criteria for sepsis with leukocytosis tachycardia and altered mental status. CT head was negative for any acute intracranial abnormality. WBC count of 21 K on admission. Pancultured on admission. WBC count improved down to 12,000 today. ABG with respiratory alkalosis. Also has hypernatremia with sodium level of 151 and severely hypokalemic. Replace and monitor. Renal function stable. A1c at 6.9 blood sugar acceptable lactic acid is normal. LFTs are elevated with AST 140/ALT 121 and ALP 327. Mild troponin elevation at 0.257 with flat trajectory. TSH elevated at 7.7. On half-normal saline. Will change to D5 half-normal saline. CT scan with left lower lobe pneumonia on ceftriaxone and azithromycin. No evidence of UTI. Right upper quadrant ultrasound for elevated liver enzymes were done which was unremarkable. DVT prophylaxis with Lovenox. Echocardiogram pending. Continue amiodarone and carvedilol. Currently in normal sinus rhythm. History of proximal atrial fibrillation. Digoxin level less than 0.5 hepatitis panel was negative influenza negative RSV and COVID negative urine antigens are sent and pending. DNR DNI discussed with the family 03/18/2023 interval history: Today patient little more awake however unable to provide detailed review of symptom concerning for sepsis etiology uncertain patient is pancultured, so far urine and blood cultures no growth will follow-up on urine and blood culture, patient is being treated with ceftriaxone and azithromycin, will continue to monitor, today will have PT OT evaluate the patient, patient will benefit going to acute rehab. Subjective Date/time seen: 03/18/23 18:10 Interval history: 03/18/2023 interval history: Today patient little more awake however unable to provide detailed review of symptom concerning for sepsis etiology uncertain patient is pancultured, so far urine and blood cultures no growth will follow-up on urine and blood culture, patient is being treated with ceftriaxone and azithromycin, will continue to monitor, today will have PT OT evaluate the patient, patient will benefit going to acute rehab. Review of Systems Review of Systems: All systems reviewed & are unremarkable except as noted in HPI and below Exam Narrative:
[2023-03-18 22:59] LABS: Glucose Point of Care 133 mg/dl (65-105)
[2023-03-19] VITALS (16 sets, daily range): BP systolic 102–134; BP diastolic 53–73; PULSE 59–93; RESP 20–28; TEMP 36.4–37.4; O2SAT 93–100
[2023-03-19 05:08] LABS: Hemoglobin 11.5 g/dL (12.0-15.0); Immature Platelet Fraction Pct 19.2 % (0.9-11.2); Mean Corpuscular HGB Conc 30.3 g/dl (32-36); Mean Corpuscular Volume 102.4 fl (80-100); Mean Platelet Volume 14.1 fl (7.4-10.4); Platelet Count Result 119 k/mm3 (150-375); Red Blood Count 3.71 M/mm3 (4.2-5.4); White Blood Count 9.8 K/mm3 (4.5-10.0)
[2023-03-19 05:25] LABS: Anion Gap 4 mmol/L (8-16); Blood Urea Nitrogen 4 mg/dL (7-17); Carbon Dioxide 24 mmol/L (22-30); Chloride 111 mmol/L (98-107); Estimated CRCL calculation 65 ml/min; Estimated Glomerular Filt Rate > 60; Glucose 147 mg/dL (65-110); Magnesium 1.8 mg/dL (1.6-2.3); Potassium 2.5 mmol/L (3.4-5.0); Sodium 139 mmol/L (137-145)
[2023-03-19] MEDS: POTASSIUM CHLORIDE INJ 40 MEQ in SODIUM CHLORIDE 0.9% IV 500 ML 130 MEQ IVPB (06:06)
[2023-03-19] MEDS: POTASSIUM CHLORIDE 20 MEQ PACKET (FOR LIQUID) 40 MEQ PO (06:10)
[2023-03-19] MEDS: ALBUTEROL SULFATE (*SP) AEROSOL 1 PUFF 2 PUFF INHALATION (08:32)
[2023-03-19] MEDS: AMIODARONE HCL 200 MG TABLET PO (10:54)
[2023-03-19] MEDS: busPIRone HCL 5 MG TABLET PO ×2 (10:55→21:38)
[2023-03-19] MEDS: busPIRone HCL 2.5 MG TABLET PO ×2 (10:55→21:37)
[2023-03-19] MEDS: carvediloL 3.125 MG TABLET PO ×2 (10:55→21:38)
[2023-03-19] MEDS: SERTRALINE HCL 50 MG TABLET 100 MG PO (10:56)
[2023-03-19] MEDS: ENOXAPARIN 40 MG/0.4 ML SYRINGE SUB-Q (10:56)
[2023-03-19] MEDS: guaiFENesin 12 HR 600 MG TABCR PO ×2 (10:56→21:38)
[2023-03-19 11:48] LABS: Glucose Point of Care 136 mg/dl (65-105)
--- NOTE | 2023-03-19 12:02 | PCNFU ---
Nutrition Follow-Up Complete: Inadequate energy intake related to NPO status as evidenced by current diet orders Goal:Diet order PO intake greater than 50% of meals Pt is meeting goal, continue with current goal. Pt current nutrition is Heart healthy, pureed level 4, level2 liquids, Ensure compact BID. Nutrition recommendation: continue with current plan of care Last recorded weight is 66.2 kg. Bowel Motility: +BM 03/19 Labs Reviewed: Hgb:11.5, K:2.5, BUN:4, Cr:0.5 Meds Noted: novolog, lovenox Skin: no skin issues noted Additional Notes: Pt diet advanced. Intake is currently good. Ensure compact supplements in place. Encourage good po intake of meals and supplements. Monitor intake, wt, labs. Follow up in 5 days.
--- NOTE | 2023-03-19 16:14 | WPDPN ---
Progress Note: A&P Assessment and Plan (1) Sepsis: Code(s): A41.9 - Sepsis, unspecified organism Status: Acute (2) Acute respiratory failure with hypoxia: Code(s): J96.01 - Acute respiratory failure with hypoxia Status: Acute (3) Metabolic encephalopathy: Code(s): G93.41 - Metabolic encephalopathy Status: Acute (4) Abnormal urinalysis: Code(s): R82.90 - Unspecified abnormal findings in urine Status: Acute (5) Pneumonia: Code(s): J18.9 - Pneumonia, unspecified organism Status: Acute (6) Hypernatremia: Code(s): E87.0 - Hyperosmolality and hypernatremia Status: Acute (7) Hypokalemia: Code(s): E87.6 - Hypokalemia Status: Acute (8) Transaminitis: Code(s): R74.01 - Elevation of levels of liver transaminase levels Status: Acute (9) Elevated troponin: Code(s): R77.8 - Other specified abnormalities of plasma proteins Status: Acute (10) Type 2 diabetes mellitus: Code(s): E11.9 - Type 2 diabetes mellitus without complications Status: Acute (11) Hypertension: Code(s): I10 - Essential (primary) hypertension Status: Acute (12) Paroxysmal atrial fibrillation: Code(s): I48.0 - Paroxysmal atrial fibrillation Status: Acute (13) Chronic obstructive pulmonary disease: Code(s): J44.9 - Chronic obstructive pulmonary disease, unspecified Status: Acute Plan The patient was brought to the emergency department today for evaluation of confusion. Patient afebrile and vitals stable hypoxic on presentation improved with oxygen supplementation. At baseline alert and oriented x3. Meets criteria for sepsis with leukocytosis tachycardia and altered mental status. CT head was negative for any acute intracranial abnormality. WBC count of 21 K on admission. Pancultured on admission. WBC count improved down to 12,000 today. ABG with respiratory alkalosis. Also has hypernatremia with sodium level of 151 and severely hypokalemic. Replace and monitor. Renal function stable. A1c at 6.9 blood sugar acceptable lactic acid is normal. LFTs are elevated with AST 140/ALT 121 and ALP 327. Mild troponin elevation at 0.257 with flat trajectory. TSH elevated at 7.7. On half-normal saline. Will change to D5 half-normal saline. CT scan with left lower lobe pneumonia on ceftriaxone and azithromycin. No evidence of UTI. Right upper quadrant ultrasound for elevated liver enzymes were done which was unremarkable. DVT prophylaxis with Lovenox. Echocardiogram pending. Continue amiodarone and carvedilol. Currently in normal sinus rhythm. History of proximal atrial fibrillation. Digoxin level less than 0.5 hepatitis panel was negative influenza negative RSV and COVID negative urine antigens are sent and pending. DNR DNI discussed with the family 03/19/2023 interval history: Today patient little more awake however unable to provide detailed review of symptom concerning for sepsis etiology uncertain patient is pancultured, so far urine and blood cultures no growth will follow-up on urine and blood culture, patient is being treated with ceftriaxone and azithromycin, will continue to monitor, patient remains somnolent unable to provide any review of symptom I discussed with the patient's daughter will discharge the patient to senior care tomorrow, there she may be admitted under hospice care Subjective Date/time seen: 03/19/23 16:14 Interval history: 03/19/2023 interval history: Today patient little more awake however unable to provide detailed review of symptom concerning for sepsis etiology uncertain patient is pancultured, so far urine and blood cultures no growth will follow-up on urine and blood culture, patient is being treated with ceftriaxone and azithromycin, will continue to monitor, patient remains somnolent unable to provide any review of symptom I discussed with the patient's daughter will di
[2023-03-19] MEDS: AZITHROMYCIN 500 MG/NS 250 ML 500 MG/250 ML BAG 250 MG IVPB (17:03)
[2023-03-19 17:39] LABS: Glucose Point of Care 114 mg/dl (65-105)
[2023-03-19] MEDS: DEXTROSE 5%/0.45% SOD CHL 1,000 ML 100 ML IV CONT (18:49)
--- NOTE | 2023-03-19 22:37 | PC.NURSE ---
This patient, Alicia Burgos, was received from [ IMU] on 03/19/23 at 2232. Patient/family oriented to unit policies and routines
[2023-03-19 23:45] LABS: Glucose Point of Care 130 mg/dl (65-105)
[2023-03-20] MEDS: DEXTROSE 5%/0.45% SOD CHL 1,000 ML 100 ML IV CONT ×2 (04:35→21:07)
[2023-03-20 06:28] LABS: Glucose Point of Care 138 mg/dl (65-105)
[2023-03-20 06:39] VITALS: BP 118/49; PULSE 79; RESP 20; TEMP 36.1; O2SAT 100
[2023-03-20 09:40] VITALS: PULSE 64; RESP 20; O2SAT 93
[2023-03-20] MEDS: busPIRone HCL 2.5 MG TABLET PO ×2 (09:40→22:29)
[2023-03-20] MEDS: SERTRALINE HCL 50 MG TABLET 100 MG PO (09:40)
[2023-03-20] MEDS: guaiFENesin 12 HR 600 MG TABCR PO ×2 (09:40→22:29)
[2023-03-20] MEDS: carvediloL 3.125 MG TABLET PO ×2 (09:40→22:29)
[2023-03-20] MEDS: AMIODARONE HCL 200 MG TABLET PO (09:40)
[2023-03-20] MEDS: ENOXAPARIN 40 MG/0.4 ML SYRINGE SUB-Q (09:40)
[2023-03-20] MEDS: busPIRone HCL 5 MG TABLET PO ×2 (09:40→22:29)
[2023-03-20 10:29] LABS: Hematocrit 36.7 % (37.0-47.0); Hemoglobin 11.7 g/dL (12.0-15.0); Immature Platelet Fraction Pct 16.9 % (0.9-11.2); Mean Corpuscular HGB Conc 31.9 g/dl (32-36); Mean Corpuscular Hemoglobin 30.6 pg (26-34); Mean Corpuscular Volume 96.1 fl (80-100); Mean Platelet Volume 14.4 fl (7.4-10.4); Platelet Count Result 130 k/mm3 (150-375); Red Blood Count 3.82 M/mm3 (4.2-5.4); Red Cell Distribution Width 18.1 % (11.5-14.5); White Blood Count 12.6 K/mm3 (4.5-10.0)
[2023-03-20 10:43] LABS: SARS-CoV-2 RNA PCR Negative (Negative)
[2023-03-20 11:07] LABS: Anion Gap 0 mmol/L (8-16); Blood Urea Nitrogen 3 mg/dL (7-17); Calcium 7.2 mg/dL (8.4-10.2); Carbon Dioxide 24 mmol/L (22-30); Chloride 110 mmol/L (98-107); Estimated CRCL calculation 65 ml/min; Estimated Glomerular Filt Rate > 60; Glucose 144 mg/dL (65-110); Magnesium 1.6 mg/dL (1.6-2.3); Potassium 2.8 mmol/L (3.4-5.0); Sodium 134 mmol/L (137-145)
[2023-03-20 12:08] LABS: Glucose Point of Care 161 mg/dl (65-105)
[2023-03-20] MEDS: POTASSIUM CHLORIDE INJ 40 MEQ in SODIUM CHLORIDE 0.9% IV 500 ML 130 MEQ IVPB (12:31)
[2023-03-20] MEDS: POTASSIUM CHLORIDE 20 MEQ PACKET (FOR LIQUID) 40 MEQ PO (12:31)
[2023-03-20 13:14] LABS: Mycoplasma IgM Antibody Titer 91 U/mL (<770)
[2023-03-20 14:00] VITALS: BP 109/59; PULSE 67; RESP 28; TEMP 35.7; O2SAT 97
--- NOTE | 2023-03-20 15:12 | WPDPN ---
Progress Note: A&P Assessment and Plan (1) Sepsis: Code(s): A41.9 - Sepsis, unspecified organism Status: Acute (2) Acute respiratory failure with hypoxia: Code(s): J96.01 - Acute respiratory failure with hypoxia Status: Acute (3) Metabolic encephalopathy: Code(s): G93.41 - Metabolic encephalopathy Status: Acute (4) Abnormal urinalysis: Code(s): R82.90 - Unspecified abnormal findings in urine Status: Acute (5) Pneumonia: Code(s): J18.9 - Pneumonia, unspecified organism Status: Acute (6) Hypernatremia: Code(s): E87.0 - Hyperosmolality and hypernatremia Status: Acute (7) Hypokalemia: Code(s): E87.6 - Hypokalemia Status: Acute (8) Transaminitis: Code(s): R74.01 - Elevation of levels of liver transaminase levels Status: Acute (9) Elevated troponin: Code(s): R77.8 - Other specified abnormalities of plasma proteins Status: Acute (10) Type 2 diabetes mellitus: Code(s): E11.9 - Type 2 diabetes mellitus without complications Status: Acute (11) Hypertension: Code(s): I10 - Essential (primary) hypertension Status: Acute (12) Paroxysmal atrial fibrillation: Code(s): I48.0 - Paroxysmal atrial fibrillation Status: Acute (13) Chronic obstructive pulmonary disease: Code(s): J44.9 - Chronic obstructive pulmonary disease, unspecified Status: Acute Plan The patient was brought to the emergency department today for evaluation of confusion. Patient afebrile and vitals stable hypoxic on presentation improved with oxygen supplementation. At baseline alert and oriented x3. Meets criteria for sepsis with leukocytosis tachycardia and altered mental status. CT head was negative for any acute intracranial abnormality. WBC count of 21 K on admission. Pancultured on admission. WBC count improved down to 12,000 today. ABG with respiratory alkalosis. Also has hypernatremia with sodium level of 151 and severely hypokalemic. Replace and monitor. Renal function stable. A1c at 6.9 blood sugar acceptable lactic acid is normal. LFTs are elevated with AST 140/ALT 121 and ALP 327. Mild troponin elevation at 0.257 with flat trajectory. TSH elevated at 7.7. On half-normal saline. Will change to D5 half-normal saline. CT scan with left lower lobe pneumonia on ceftriaxone and azithromycin. No evidence of UTI. Right upper quadrant ultrasound for elevated liver enzymes were done which was unremarkable. DVT prophylaxis with Lovenox. Echocardiogram pending. Continue amiodarone and carvedilol. Currently in normal sinus rhythm. History of proximal atrial fibrillation. Digoxin level less than 0.5 hepatitis panel was negative influenza negative RSV and COVID negative urine antigens are sent and pending. DNR DNI discussed with the family 03/20/2023 interval history: Today patient little more awake however unable to provide detailed review of symptom concerning for sepsis etiology uncertain patient is pancultured, so far urine and blood cultures no growth will follow-up on urine and blood culture, patient is being treated with ceftriaxone and azithromycin, will continue to monitor, patient remains somnolent unable to provide any review of symptom on 03/19 I discussed with the patient's daughter and plan was to discharge patient today will to care home where she will be admitted under hospice care, however this morning her Potassium is 2.8, will supplement and monitor and recheck if it is close normal, will discharge the patient, there she may be admitted under hospice care Subjective Date/time seen: 03/20/23 15:12 Interval history: 03/20/2023 interval history: Today patient little more awake however unable to provide detailed review of symptom concerning for sepsis etiology uncertain patient is pancultured, so far urine and blood cultures no growth will follow-up on urine and blood culture,
--- NOTE | 2023-03-20 17:03 | PM.DS ---
DS: Admitting Diagnosis Discharge Date 03/20/2023 Admitting Diagnosis Confusion. DS: Discharge Diagnosis Discharge Diagnosis (1) Sepsis: Code(s): A41.9 - Sepsis, unspecified organism Status: Acute (2) Acute respiratory failure with hypoxia: Code(s): J96.01 - Acute respiratory failure with hypoxia Status: Acute (3) Metabolic encephalopathy: Code(s): G93.41 - Metabolic encephalopathy Status: Acute (4) Abnormal urinalysis: Code(s): R82.90 - Unspecified abnormal findings in urine Status: Acute (5) Pneumonia: Code(s): J18.9 - Pneumonia, unspecified organism Status: Acute (6) Hypernatremia: Code(s): E87.0 - Hyperosmolality and hypernatremia Status: Acute (7) Hypokalemia: Code(s): E87.6 - Hypokalemia Status: Acute (8) Transaminitis: Code(s): R74.01 - Elevation of levels of liver transaminase levels Status: Acute (9) Elevated troponin: Code(s): R77.8 - Other specified abnormalities of plasma proteins Status: Acute (10) Type 2 diabetes mellitus: Code(s): E11.9 - Type 2 diabetes mellitus without complications Status: Acute (11) Hypertension: Code(s): I10 - Essential (primary) hypertension Status: Acute (12) Paroxysmal atrial fibrillation: Code(s): I48.0 - Paroxysmal atrial fibrillation Status: Acute (13) Chronic obstructive pulmonary disease: Code(s): J44.9 - Chronic obstructive pulmonary disease, unspecified Status: Acute Plan The patient was brought to the emergency department today for evaluation of confusion. Patient afebrile and vitals stable hypoxic on presentation improved with oxygen supplementation. At baseline alert and oriented x3. Meets criteria for sepsis with leukocytosis tachycardia and altered mental status. CT head was negative for any acute intracranial abnormality. WBC count of 21 K on admission. Pancultured on admission. WBC count improved down to 12,000 today. ABG with respiratory alkalosis. Also has hypernatremia with sodium level of 151 and severely hypokalemic. Replace and monitor. Renal function stable. A1c at 6.9 blood sugar acceptable lactic acid is normal. LFTs are elevated with AST 140/ALT 121 and ALP 327. Mild troponin elevation at 0.257 with flat trajectory. TSH elevated at 7.7. On half-normal saline. Will change to D5 half-normal saline. CT scan with left lower lobe pneumonia on ceftriaxone and azithromycin. No evidence of UTI. Right upper quadrant ultrasound for elevated liver enzymes were done which was unremarkable. DVT prophylaxis with Lovenox. Echocardiogram pending. Continue amiodarone and carvedilol. Currently in normal sinus rhythm. History of proximal atrial fibrillation. Digoxin level less than 0.5 hepatitis panel was negative influenza negative RSV and COVID negative urine antigens are sent and pending. DNR DNI discussed with the family 03/20/2023 interval history: Today patient little more awake however unable to provide detailed review of symptom concerning for sepsis etiology uncertain patient is pancultured, so far urine and blood cultures no growth will follow-up on urine and blood culture, patient is being treated with ceftriaxone and azithromycin, will continue to monitor, patient remains somnolent unable to provide any review of symptom on 03/19 I discussed with the patient's daughter and plan was to discharge patient today will to retirement where she will be admitted under hospice care, however this morning her Potassium is 2.8, will supplement and monitor and recheck if it is close normal, will discharge the patient, there she may be admitted under hospice care DS: Summary Hospital Course Reason for hospitalization: Confusion. Narrative: This is an 82-year-old female with COPD on oxygen, paroxysmal atrial fibrillation, hypertension, hyperlipidemia, type 2 diabetes mellitus, and gastroesophageal
[2023-03-20 18:14] LABS: Glucose Point of Care 107 mg/dl (65-105)
[2023-03-20 20:24] LABS: Potassium 3.5 mmol/L (3.4-5.0)
[2023-03-20 21:40] VITALS: O2SAT 98
[2023-03-20 21:48] LABS: Pneumococcal Antigen Urine Detected (Not Detected)
[2023-03-20 21:59] VITALS: BP 128/57; PULSE 69; RESP 20; TEMP 36.6; O2SAT 98
[2023-03-20 22:29] VITALS: PULSE 69
[2023-03-21 00:10] LABS: Glucose Point of Care 106 mg/dl (65-105)
[2023-03-21 00:30] LABS: Glucose Point of Care 118 mg/dl (65-105)
[2023-03-21 05:16] LABS: Glucose Point of Care 132 mg/dl (65-105)
[2023-03-21 05:59] LABS: Toxigenic C. Diff NEGATIVE (NEGATIVE)
[2023-03-21 06:00] VITALS: BP 127/58; PULSE 72; RESP 20; TEMP 36.4; O2SAT 96
[2023-03-21 06:58] LABS: Hematocrit 35.7 % (37.0-47.0); Immature Platelet Fraction Pct 19.6 % (0.9-11.2); Mean Corpuscular HGB Conc 30.8 g/dl (32-36); Mean Corpuscular Hemoglobin 31.3 pg (26-34); Mean Corpuscular Volume 101.7 fl (80-100); Platelet Count Result 112 k/mm3 (150-375); Red Blood Count 3.51 M/mm3 (4.2-5.4); Red Cell Distribution Width 18.5 % (11.5-14.5); White Blood Count 10.8 K/mm3 (4.5-10.0)
[2023-03-21 07:05] LABS: Anion Gap 1 mmol/L (8-16); Blood Urea Nitrogen 3 mg/dL (7-17); Calcium 7.1 mg/dL (8.4-10.2); Carbon Dioxide 21 mmol/L (22-30); Chloride 111 mmol/L (98-107); Estimated CRCL calculation 65 ml/min; Estimated Glomerular Filt Rate > 60; Glucose 134 mg/dL (65-110); Magnesium 1.6 mg/dL (1.6-2.3); Potassium 3.3 mmol/L (3.4-5.0); Sodium 133 mmol/L (137-145)
[2023-03-21 07:14] LABS: Legionella pneumophila Ag Ur Not Detected (Not Detected)
[2023-03-21] MEDS: DEXTROSE 5%/0.45% SOD CHL 1,000 ML 100 ML IV CONT (07:37)
[2023-03-21 08:30] VITALS: PULSE 70; RESP 20; O2SAT 96
[2023-03-21 08:41] VITALS: PULSE 70
[2023-03-21] MEDS: AMIODARONE HCL 200 MG TABLET PO (08:41)
[2023-03-21 08:42] VITALS: PULSE 70
[2023-03-21] MEDS: busPIRone HCL 2.5 MG TABLET PO (08:42)
[2023-03-21] MEDS: ENOXAPARIN 40 MG/0.4 ML SYRINGE SUB-Q (08:42)
[2023-03-21] MEDS: carvediloL 3.125 MG TABLET PO (08:42)
[2023-03-21] MEDS: SERTRALINE HCL 50 MG TABLET 100 MG PO (08:42)
[2023-03-21] MEDS: guaiFENesin 12 HR 600 MG TABCR PO (08:42)
[2023-03-21] MEDS: busPIRone HCL 5 MG TABLET PO (08:42)
[2023-03-21] MEDS: POTASSIUM CHLORIDE 20 MEQ ER TABLET 40 MEQ PO (08:51)
--- NOTE | 2023-03-21 09:46 | PC.NURSE ---
report called to Sherin DAHL at [facility], reviewed plan of care
[2023-03-21 11:41] LABS: Glucose Point of Care 110 mg/dl (65-105)
[2023-03-21 14:00] VITALS: BP 102/54; PULSE 88; RESP 20; TEMP 36; O2SAT 92
== END 2023-03-21 16:05 | DRG 871 ==
LOC: ANHED 09:14 → ANH3MEDSUR 13:40 → ANHIMU 15:46 → ANH3MEDSUR 17:57 → ANHIMU 17:57 → ANH3MEDSUR 03-19 22:40
PROVIDERS: Internal Medicine; Physician Assistant; Student in an Organized Health Care Education/Training Program; Admitting Provider Student in an Organized Health Care Education/Training Program; Emergency Provider Emergency Medicine; Visit Provider Family Medicine
DX: A41.9 Sepsis, unspecified organism (principal); G93.41 Metabolic encephalopathy; J18.9 Pneumonia, unspecified organism; J96.01 Acute respiratory failure with hypoxia; E87.0 Hyperosmolality and hypernatremia; J44.0 Chronic obstructive pulmonary disease with (acute) lower respiratory infection; R82.90 Unspecified abnormal findings in urine; E87.6 Hypokalemia; R74.01 Elevation of levels of liver transaminase levels; R77.8 Other specified abnormalities of plasma proteins; E11.9 Type 2 diabetes mellitus without complications; I10 Essential (primary) hypertension; E86.0 Dehydration; I48.0 Paroxysmal atrial fibrillation; K21.9 Gastro-esophageal reflux disease without esophagitis; Z20.822 Contact with and (suspected) exposure to COVID-19; E78.5 Hyperlipidemia, unspecified; F41.8 Other specified anxiety disorders; M19.90 Unspecified osteoarthritis, unspecified site; Z66 Do not resuscitate; Z86.73 Personal history of transient ischemic attack (TIA), and cerebral infarction without residual deficits; Z99.81 Dependence on supplemental oxygen; Z90.710 Acquired absence of both cervix and uterus
CPT/HCPCS: 36415; 36600; 70450; 71045; 71275; 76705; 80048; 80053; 80074; 80162; 81001; 82140; 82550; 82607; 82746; 82805; 82948; 83036; 83605; 83735; 84132; 84439; 84443; 84480; 84484; 85025; 85027; 85055; 86738; 87040; 87086; 87449; 87493; 87635; 87637; 87899; 92526; 92610; 93005; 93306; 94640; 96361; 96365; 96366; 96367; 96368; 96372; 96376; 99285; A9270; G0378; J0456; J0696; J1650; J3480; J7040; J7120; Q9967